=== PATIENT | female | born 1955 | race Caucasian/White ===

== ENCOUNTER 2023-03-31 08:17 | Outpatient (CLI) | payer MEDICARE | END 2023-03-31 08:18 | disposition home or self-care (01) | LOC: CSHCT 08:17 | PROVIDERS: ATTEND Family Medicine | DX: R10.32 Left lower quadrant pain (principal); N13.2 Hydronephrosis with renal and ureteral calculous obstruction; N28.89 Other specified disorders of kidney and ureter; N83.8 Other noninflammatory disorders of ovary, fallopian tube and broad ligament | CPT/HCPCS: 74176 ==

== ENCOUNTER 2023-04-19 07:22 | Outpatient (CLI) | payer MEDICARE | END 2023-04-19 07:23 | disposition home or self-care (01) | LOC: CSHCT 07:22 | PROVIDERS: ATTEND Urology | DX: N20.0 Calculus of kidney (principal); Z96.0 Presence of urogenital implants; N94.89 Other specified conditions associated with female genital organs and menstrual cycle | CPT/HCPCS: 74176 ==

== ENCOUNTER 2024-01-18 08:50 | Outpatient (CLI) | payer MEDICARE | END 2024-01-18 08:51 | disposition home or self-care (01) | LOC: CSHMAMMO 08:50 | PROVIDERS: ATTEND Family Medicine | DX: Z12.31 Encounter for screening mammogram for malignant neoplasm of breast (principal); N64.89 Other specified disorders of breast; M81.0 Age-related osteoporosis without current pathological fracture; M85.852 Other specified disorders of bone density and structure, left thigh; Z78.0 Asymptomatic menopausal state; Z87.898 Personal history of other specified conditions | CPT/HCPCS: 77063; 77067; 77080 ==

== ENCOUNTER 2024-11-18 07:13 | Outpatient (CLI) | payer MEDICARE ==
[2024-11-18] MEDS ORDERED: Iopamidol 370 76% 100 ML VIAL ONE (10:22)
== END 2024-11-18 07:14 | disposition home or self-care (01) ==
LOC: CSHCT 07:13
PROVIDERS: ATTEND Urology
DX: N13.2 Hydronephrosis with renal and ureteral calculous obstruction (principal); Z98.890 Other specified postprocedural states; N28.89 Other specified disorders of kidney and ureter
CPT/HCPCS: 74178; Q9967

== ENCOUNTER 2025-01-20 12:57 | Outpatient (CLI) | payer MEDICARE | END 2025-01-20 12:58 | disposition home or self-care (01) | LOC: CSHMAMMO 12:57 | PROVIDERS: ATTEND Family Medicine | DX: Z12.31 Encounter for screening mammogram for malignant neoplasm of breast (principal); Z85.89 Personal history of malignant neoplasm of other organs and systems | CPT/HCPCS: 77063; 77067 ==